=== PATIENT | female | born 1935 | race Caucasian/White ===

== ENCOUNTER 2019-01-02 06:18 | Inpatient (IN) ==
[2019-01-02] MEDS ORDERED: KETOROLAC 30 MG/1 ML VIAL IV STA (06:43)
[2019-01-02 06:58] LABS: Basophils % 0.3 % (0.0-0.8); Eosinophils # 0.1 10*3/uL (0.0-0.87); Eosinophils % 0.4 % (0.00-10.9); Hematocrit 35.8 VOL% (35.7-47.0); Hemoglobin 11.7 GM/DL (12.0-16.0); Immature Granulocytes % 0.4 %; Immature Granulocytes Absolute 0.05 #; Lymphocytes # 0.7 10*3/uL (1.4-4.0); Lymphocytes % 5.8 % (21.3-54.2); Mean Corpuscular HGB Conc 32.7 GM/DL (32-36); Mean Platelet Volume 9.5 FL (9.6-12.0); Neutrophils % 84.1 % (38.7-73.9); Platelet Count 189 T/CUMM (130-400); Red Blood Count 3.69 MC/CUMM (3.8-5.5); Red Cell Distribution Width 13.5 % (9.3-17.3); White Blood Count 12.7 T/CUMM (4-12)
[2019-01-02 07:11] LABS: Calcium 9.4 MG/DL (8.5-10.1); Osmolality,Calculated 279.7 MOS/KG (273-304); Uric Acid 4.1 MG/DL (2.6-6.0)
[2019-01-02 08:01] LABS: Sedimentation Rate-Westergren 50 MM/HR (0-30)
[2019-01-02] MEDS ORDERED: TRIAMCINOLONE ACETONIDE 40 MG/1 ML VIAL ONE (09:48)
[2019-01-02 10:21] LABS: Lymphocytes,Synovial Fluid 1 %; Neutrophils,Synovial Fluid 97 %
[2019-01-02 10:53] LABS: Glucose,Synovial Fluid 2 MG/DL; Uric Acid,Synovial Fluid 7.2 MG/DL
[2019-01-02 11:30] LABS: Cholesterol Crystals None Seen /LPF
[2019-01-02] MEDS ORDERED: ONDANSETRON 4 MG/2 ML VIAL IV PRN (14:20)
[2019-01-02] MEDS ORDERED: ACETAMINOPHEN 325 MG TABLET PO PRN (14:20)
[2019-01-02 16:48] LABS: Apearance,Urine Slightly Hazy (Clear); Bilirubin,Urine Negative (Negative); Blood, Urine Negative (Negative); Glucose,Urine (UA) Negative (Negative); Ketones,Urine Negative (Negative); Mucus,Urine Occasional /LPF (Occasional); Nitrite,Urine Negative (Negative); Protein,Urine Negative; RBC,Urine 16 /HPF (0-4); Urine Color Yellow (Yellow); Urine Specific Gravity 1.017 (1.001-1.035); WBC,Urine 5 /HPF (0-6)
[2019-01-02] MEDS ORDERED: CYANOCOBALAMIN 1000 MCG/1 ML VIAL IM SCH (17:00)
[2019-01-02] MEDS ORDERED: ALBUTEROL 2.5 MG/3 ML NEB RESP TX PRN (19:00)
[2019-01-02] MEDS ORDERED: FLUTICASONE SALMETEROL INH SCH (21:00)
[2019-01-02] MEDS: ROSUVASTATIN 20 MG TABLET PO SCH (21:18)
[2019-01-02] MEDS: cloNIDine 0.1 MG TABLET PO SCH (21:18)
[2019-01-02] MEDS: traMADol 50 MG TABLET PO PRN (22:22)
[2019-01-02] MEDS: PANTOPRAZOLE 40 MG TABLET PO SCH (22:26)
[2019-01-03 06:48] LABS: Basophils % 0.2 % (0.0-0.8); Hematocrit 35.2 VOL% (35.7-47.0); Hemoglobin 11.4 GM/DL (12.0-16.0); Immature Granulocytes % 0.6 %; Immature Granulocytes Absolute 0.08 #; Lymphocytes # 0.4 10*3/uL (1.4-4.0); Lymphocytes % 3.3 % (21.3-54.2); Mean Corpuscular HGB Conc 32.4 GM/DL (32-36); Mean Corpuscular Volume 96.7 FL (87-102); Mean Platelet Volume 10.2 FL (9.6-12.0); Monocytes % 4.5 % (1.7-12.7); Neutrophils % 91.4 % (38.7-73.9); Platelet Count 191 T/CUMM (130-400); Red Blood Count 3.64 MC/CUMM (3.8-5.5); Red Cell Distribution Width 13.2 % (9.3-17.3); White Blood Count 12.5 T/CUMM (4-12)
[2019-01-03 07:09] LABS: Calcium 9.7 MG/DL (8.5-10.1); Osmolality,Calculated 280.8 MOS/KG (273-304)
[2019-01-03 07:13] LABS: Risk Ratio 1.41; VLDL CHOLESTEROL 8.6 MG/DL
[2019-01-03 07:26] LABS: Anisocytosis 1+; Band Neutrophils 11 % (0-10); Lymphocytes 3 % (20-55); Macrocytosis 1+; Platelet Estimate Normal; Segmented Neutrophils 83 % (50-85); Total Cells Counted 100
[2019-01-03] MEDS: traMADol 50 MG TABLET PO PRN (07:45)
[2019-01-03] MEDS: ASCORBIC ACID 500 MG TABLET PO SCH (08:45)
[2019-01-03] MEDS: LOSARTAN 50 MG TABLET PO SCH (08:46)
[2019-01-03] MEDS: PANTOPRAZOLE 40 MG TABLET PO SCH (08:46)
[2019-01-03] MEDS: MONTELUKAST 10 MG TABLET PO SCH (08:46)
[2019-01-03] MEDS: CITALOPRAM 20 MG TABLET PO SCH (08:46)
[2019-01-03] MEDS: cloNIDine 0.1 MG TABLET PO SCH ×3 (08:46→20:38)
[2019-01-03] MEDS: METOPROLOL SUCCINATE XL 50 MG TABLET PO SCH (08:46)
[2019-01-03] MEDS ORDERED: Mirabegron [Myrbetriq] 50 MG PO SCH (09:00)
[2019-01-03] MEDS ORDERED: ERGOCALCIFEROL 50,000 UNIT CAPSULE PO SCH (09:00)
[2019-01-03] MEDS ORDERED: MORPHINE 4 MG/1 ML VIAL IV PRN (09:19)
[2019-01-03] MEDS ORDERED: oxyCODONE IR 5 MG TABLET PO PRN (09:19)
[2019-01-03 17:58] LABS: Apearance,Urine CLEAR (Clear); Bilirubin,Urine Negative (Negative); Blood, Urine Small mg/dL (Negative); Glucose,Urine (UA) 50 mg/dL (Negative); Ketones,Urine Negative (Negative); Nitrite,Urine Negative (Negative); Protein,Urine Negative; RBC,Urine 5 /HPF (0-4); Squamous Epithelial Cell,Urine Occasional /HPF (0-10); Urine Color Yellow (Yellow); Urine Urobilinogen < 2.0 EU/DL (0.2-1.0); WBC,Urine 1 /HPF (0-6)
[2019-01-03] MEDS: ROSUVASTATIN 20 MG TABLET PO SCH (20:38)
[2019-01-04 04:58] LABS: Basophils % 0.2 % (0.0-0.8); Hemoglobin 11.2 GM/DL (12.0-16.0); Immature Granulocytes % 0.5 %; Immature Granulocytes Absolute 0.06 #; Lymphocytes # 0.5 10*3/uL (1.4-4.0); Lymphocytes % 3.9 % (21.3-54.2); Mean Corpuscular HGB Conc 32.9 GM/DL (32-36); Mean Platelet Volume 10.6 FL (9.6-12.0); Monocytes % 6.3 % (1.7-12.7); Neutrophils % 89.1 % (38.7-73.9); Platelet Count 215 T/CUMM (130-400); Red Blood Count 3.54 MC/CUMM (3.8-5.5); Red Cell Distribution Width 13.4 % (9.3-17.3); White Blood Count 13.1 T/CUMM (4-12)
[2019-01-04 05:16] LABS: Calcium 9.4 MG/DL (8.5-10.1); Osmolality,Calculated 284.8 MOS/KG (273-304)
[2019-01-04 06:04] LABS: Anisocytosis 1+; Band Neutrophils 4 % (0-10); Lymphocytes 5 % (20-55); Platelet Estimate Adequate; Segmented Neutrophils 85 % (50-85); Total Cells Counted 100
[2019-01-04 07:57] VITALS: BP 163/79
[2019-01-04] MEDS: PANTOPRAZOLE 40 MG TABLET PO SCH (09:15)
[2019-01-04] MEDS: LOSARTAN 50 MG TABLET PO SCH (09:15)
[2019-01-04] MEDS: ASCORBIC ACID 500 MG TABLET PO SCH (09:15)
[2019-01-04] MEDS: METOPROLOL SUCCINATE XL 50 MG TABLET PO SCH (09:15)
[2019-01-04] MEDS: MONTELUKAST 10 MG TABLET PO SCH (09:15)
[2019-01-04] MEDS: CITALOPRAM 20 MG TABLET PO SCH (09:15)
[2019-01-04] MEDS: cloNIDine 0.1 MG TABLET PO SCH (09:15)
[2019-01-04] MEDS: traMADol 50 MG TABLET PO PRN (09:25)
== END 2019-01-04 12:15 | disposition home or self-care (01) | DRG 554 ==
LOC: EDBD 06:18 → EDUNIT# 06:18 → N.ED 06:18 → N.EDINP 13:57 → N.3E 16:44
PROVIDERS: ADMIT Internal Medicine; ATTEND Internal Medicine

== ENCOUNTER 2021-05-22 12:01 | Observation (INO) ==
[2021-05-22 13:57] LABS: Basophils % 0.4 % (0.0-0.8); Eosinophils # 0.2 10*3/uL (0.0-0.87); Eosinophils % 1.9 % (0.00-10.9); Hematocrit 40.6 VOL% (35.7-47.0); Immature Granulocytes % 0.5 %; Immature Granulocytes Absolute 0.04 #; Lymphocytes # 1.1 10*3/uL (1.4-4.0); Mean Corpuscular Volume 95.3 FL (87-102); Mean Platelet Volume 10.4 FL (9.6-12.0); Monocytes % 9.7 % (1.7-12.7); Neutrophils % 74.5 % (38.7-73.9); Platelet Count 253 T/CUMM (130-400); Red Blood Count 4.26 MC/CUMM (3.8-5.5); Red Cell Distribution Width 12.9 % (9.3-17.3); White Blood Count 8.4 T/CUMM (4-12)
[2021-05-22 14:46] LABS: Albumin 3.5 G/DL (3.4-5.0); Bilirubin,Total 1.2 MG/DL (0.20-1.00); Calcium 8.9 MG/DL (8.5-10.1); Osmolality,Calculated 290.7 MOS/KG (273-304); Potassium 3.5 MMOL/L (3.5-5.1); Total Protein 6.5 G/DL (6.4-8.2)
[2021-05-22] MEDS ORDERED: INSULIN REGULAR 100 UNIT/ML IV STA (14:58)
[2021-05-22] MEDS ORDERED: SODIUM CHLORIDE 0.9% 1,000 ML IV STA (14:58)
[2021-05-22] MEDS ORDERED: ALBUTEROL/IPRATROPIUM 3 ML NEB RESP TX STA (15:01)
[2021-05-22] MEDS ORDERED: DEXTROSE 50% 25 GM/50 ML VIAL IV PRN ×2 (17:46)
[2021-05-22] MEDS ORDERED: ACETAMINOPHEN 325 MG TABLET PO PRN (17:46)
[2021-05-22] MEDS ORDERED: GLUCAGON 1 MG VIAL IM PRN ×2 (17:46)
[2021-05-22] MEDS ORDERED: ONDANSETRON 4 MG/2 ML VIAL IV PRN (17:46)
[2021-05-22] MEDS ORDERED: BENZONATATE 100 MG CAPSULE PO PRN (17:58)
[2021-05-22] MEDS ORDERED: MECLIZINE 25 MG TABLET PO PRN (17:58)
[2021-05-22] MEDS ORDERED: AMITRIPTYLINE 25 MG TABLET PO PRN (17:58)
[2021-05-22] MEDS ORDERED: ENOXAPARIN 30 MG/0.3 ML SYRINGE SUBCUT SCH (18:00)
[2021-05-22] MEDS ORDERED: AZITHROMYCIN INJ 500 MG in SODIUM CHLORIDE 0.9% 250 ML IV SCH (18:00)
[2021-05-22] MEDS ORDERED: CITALOPRAM 20 MG TABLET PO SCH (18:22)
[2021-05-22] MEDS: ALBUTEROL/IPRATROPIUM 3 ML NEB RESP TX SCH (21:20)
[2021-05-22] MEDS: MONTELUKAST 10 MG TABLET PO SCH (21:34)
[2021-05-22] MEDS: cloNIDine 0.1 MG TABLET PO SCH (21:34)
[2021-05-22] MEDS: methylPREDNISolone SOD SUC 40 MG/1 ML VIAL IV SCH (21:38)
[2021-05-22] MEDS: SODIUM CHLORIDE 0.9% 1,000 ML IV SCH (21:42)
[2021-05-22] MEDS: INSULIN LISPRO 100 UNIT/ML SUBCUT SCH (22:05)
[2021-05-23] MEDS: ALBUTEROL/IPRATROPIUM 3 ML NEB RESP TX SCH ×4 (01:22→19:10)
[2021-05-23] MEDS: methylPREDNISolone SOD SUC 40 MG/1 ML VIAL IV SCH ×2 (05:03→21:48)
[2021-05-23 06:15] LABS: Basophils % 0.1 % (0.0-0.8); Hematocrit 36.8 VOL% (35.7-47.0); Hemoglobin 12.1 GM/DL (12.0-16.0); Immature Granulocytes % 0.8 %; Immature Granulocytes Absolute 0.07 #; Lymphocytes # 0.5 10*3/uL (1.4-4.0); Lymphocytes % 5.9 % (21.3-54.2); Mean Corpuscular HGB Conc 32.9 GM/DL (32-36); Mean Corpuscular Volume 94.8 FL (87-102); Monocytes % 1.2 % (1.7-12.7); Platelet Count 206 T/CUMM (130-400); Red Blood Count 3.88 MC/CUMM (3.8-5.5); Red Cell Distribution Width 12.8 % (9.3-17.3); White Blood Count 8.3 T/CUMM (4-12)
[2021-05-23 06:34] LABS: Lymphocytes 4 % (20-55); Segmented Neutrophils 96 % (50-85); Total Cells Counted 100
[2021-05-23 06:35] LABS: Hypochromasia 1+; Microcytosis 1+; Platelet Estimate Adequate
[2021-05-23 06:40] LABS: Albumin 2.9 G/DL (3.4-5.0); Bilirubin,Total 1.2 MG/DL (0.20-1.00); Calcium 8.2 MG/DL (8.5-10.1); Osmolality,Calculated 291.1 MOS/KG (273-304); Potassium 3.7 MMOL/L (3.5-5.1); Total Protein 6.1 G/DL (6.4-8.2)
[2021-05-23] MEDS: PANTOPRAZOLE 40 MG TABLET PO SCH (08:22)
[2021-05-23] MEDS: METOPROLOL SUCCINATE XL 50 MG TABLET PO SCH (08:23)
[2021-05-23] MEDS: CETIRIZINE 10 MG TABLET PO SCH (08:24)
[2021-05-23] MEDS: cloNIDine 0.1 MG TABLET PO SCH ×2 (08:24→21:48)
[2021-05-23] MEDS: CHOLECALCIFEROL 1,000 UNIT TABLET PO SCH (08:25)
[2021-05-23] MEDS: amLODIPine 5 MG TABLET PO SCH (08:25)
[2021-05-23] MEDS ORDERED: FUROSEMIDE 40 MG TABLET PO SCH (09:00)
[2021-05-23] MEDS: INSULIN LISPRO 100 UNIT/ML SUBCUT SCH ×4 (11:01→21:57)
[2021-05-23] MEDS: SODIUM CHLORIDE 0.9% 1,000 ML IV SCH (13:46)
[2021-05-23] MEDS ORDERED: LEVOFLOXACIN INJ 500 MG/100 ML PREMIX IV SCH (15:00)
[2021-05-23] MEDS: MONTELUKAST 10 MG TABLET PO SCH (21:48)
[2021-05-24] MEDS: ALBUTEROL/IPRATROPIUM 3 ML NEB RESP TX SCH ×3 (01:41→13:00)
[2021-05-24 05:01] LABS: Basophils % 0.1 % (0.0-0.8); Hematocrit 35.9 VOL% (35.7-47.0); Hemoglobin 11.5 GM/DL (12.0-16.0); Immature Granulocytes % 1.2 %; Immature Granulocytes Absolute 0.18 #; Lymphocytes # 0.5 10*3/uL (1.4-4.0); Lymphocytes % 3.2 % (21.3-54.2); Mean Platelet Volume 10.4 FL (9.6-12.0); Monocytes % 1.6 % (1.7-12.7); Neutrophils % 93.9 % (38.7-73.9); Platelet Count 210 T/CUMM (130-400); Red Cell Distribution Width 13.1 % (9.3-17.3); White Blood Count 14.8 T/CUMM (4-12)
[2021-05-24 05:23] LABS: Calcium 8.4 MG/DL (8.5-10.1); Osmolality,Calculated 290.5 MOS/KG (273-304); Potassium 4.2 MMOL/L (3.5-5.1); Total Protein 5.8 G/DL (6.4-8.2)
[2021-05-24 05:27] LABS: Lymphocytes 2 % (20-55); Platelet Estimate Adequate; Segmented Neutrophils 94 % (50-85); Total Cells Counted 100
[2021-05-24] MEDS: SODIUM CHLORIDE 0.9% 1,000 ML IV SCH (05:27)
[2021-05-24] MEDS ORDERED: SODIUM CHLORIDE 0.9% 500 ML IV SCH (06:30)
[2021-05-24] MEDS: INSULIN LISPRO 100 UNIT/ML SUBCUT SCH ×2 (07:43→13:18)
[2021-05-24] MEDS ORDERED: LACTATED RINGERS 1,000 ML IV SCH (08:00)
[2021-05-24] MEDS: amLODIPine 5 MG TABLET PO SCH (09:14)
[2021-05-24] MEDS: methylPREDNISolone SOD SUC 40 MG/1 ML VIAL IV SCH (09:14)
[2021-05-24] MEDS: PANTOPRAZOLE 40 MG TABLET PO SCH (09:14)
[2021-05-24] MEDS: CETIRIZINE 10 MG TABLET PO SCH (09:14)
[2021-05-24] MEDS: CHOLECALCIFEROL 1,000 UNIT TABLET PO SCH (09:14)
[2021-05-24] MEDS: METOPROLOL SUCCINATE XL 50 MG TABLET PO SCH (09:14)
[2021-05-24] MEDS: cloNIDine 0.1 MG TABLET PO SCH (09:14)
[2021-05-24] MEDS ORDERED: propofoL 200 MG/20 ML VIAL IV ONE (11:57)
[2021-05-24] MEDS ORDERED: LIDOCAINE 2% 5 ML VIAL ONE (11:57)
[2021-05-24 12:37] VITALS: BP 116/58
[2021-05-24] MEDS ORDERED: GLUCAGON 1 MG VIAL IM PRN (12:45)
[2021-05-24] MEDS ORDERED: DEXTROSE 50% 25 GM/50 ML VIAL IV PRN (12:45)
[2021-05-24 13:27] LABS: Hematocrit 35.9 VOL% (35.7-47.0); Hemoglobin 11.4 GM/DL (12.0-16.0)
== END 2021-05-24 16:01 | disposition home or self-care (01) ==
LOC: N.EDINP 12:01 → N.ED 12:01 → N.5E 18:46
PROVIDERS: ADMIT Internal Medicine; ATTEND Internal Medicine